=== PATIENT | female | born 1980 | race Native Hawaiian/Other Pacific Islander ===

== ENCOUNTER 2017-01-13 12:04 | Emergency (ER) | payer OTHER ==
[~2017-01-13] VITALS: Ht 152.4 cm; Wt 47.6 kg
[2017-01-13 12:23] VITALS: BP 150/92; TEMP 97.9
== END 2017-01-13 12:53 | disposition home or self-care (01) ==
LOC: ED 12:04
DX: T24.102A Burn of first degree of unspecified site of left lower limb, except ankle and foot, initial encounter (principal); T31.10 Burns involving 10-19% of body surface with 0% to 9% third degree burns; X10.2XXA Contact with fats and cooking oils, initial encounter
CPT/HCPCS: 96372; 99282; J1885

== ENCOUNTER 2017-04-29 16:10 | Emergency (ER) | payer OTHER ==
[~2017-04-29] VITALS: Ht 154.9 cm; Wt 45.4 kg
[2017-04-29 16:15] VITALS: TEMP 98.2
[2017-04-29 16:56] VITALS: BP 128/80
== END 2017-04-29 16:56 | disposition home or self-care (01) ==
LOC: ED 16:10
DX: M54.5 Low back pain (principal); M54.32 Sciatica, left side
CPT/HCPCS: 99282

== ENCOUNTER 2017-05-28 12:53 | Emergency (ER) | payer OTHER ==
[~2017-05-28] VITALS: Ht 152.4 cm; Wt 47.6 kg
[2017-05-28 12:54] VITALS: BP 124/81; TEMP 98.3
== END 2017-05-28 13:23 | disposition home or self-care (01) ==
LOC: ED 12:53
DX: R60.9 Edema, unspecified (principal); R68.84 Jaw pain
CPT/HCPCS: 99281

== ENCOUNTER 2017-06-09 15:40 | Outpatient (CLI) | payer OTHER | END 2017-06-09 15:46 | disposition short-term general hospital (02) | LOC: AMB 15:40 | DX: R07.89 Other chest pain (principal); T78.49XA Other allergy, initial encounter | CPT/HCPCS: A0425; A0427 ==

== ENCOUNTER 2017-06-09 15:45 | Emergency (ER) | payer OTHER ==
[~2017-06-09] VITALS: Ht 152.4 cm; Wt 44.5 kg
[2017-06-09 16:36] LABS: PLATELET COUNT 192 K/uL (152-353)
[2017-06-09 16:47] LABS: POTASSIUM 4.8 mmol/L (3.6-5.2); SODIUM 134 mmol/L (136-145)
[2017-06-09 18:15] VITALS: TEMP 98.2
[2017-06-09 19:23] VITALS: BP 118/62
== END 2017-06-09 19:23 | disposition home or self-care (01) ==
LOC: ED 15:45
DX: R55 Syncope and collapse (principal)
CPT/HCPCS: 80053; 80307; 82550; 84484; 85027; 99283; G0479

== ENCOUNTER 2018-08-01 13:35 | Outpatient (CLI) | payer OTHER | END 2018-08-01 19:19 | disposition home or self-care (01) | LOC: RAD 13:35 | DX: M54.17 Radiculopathy, lumbosacral region (principal) ==

== ENCOUNTER 2018-08-05 12:42 | Emergency (ER) | payer OTHER ==
[~2018-08-05] VITALS: Ht 154.9 cm; Wt 68.0 kg
[2018-08-05 13:47] LABS: PLATELET COUNT 195 K/uL (152-353)
[2018-08-05 15:26] VITALS: BP 106/73; TEMP 98.6
== END 2018-08-05 16:10 | disposition home or self-care (01) ==
LOC: ED 12:42
PROVIDERS: Family Medicine
DX: M54.5 Low back pain (principal); M79.605 Pain in left leg; M79.604 Pain in right leg
CPT/HCPCS: 36415; 80053; 81000; 84550; 85027; 96372; 99283; J1885

== ENCOUNTER 2018-10-12 14:56 | Emergency (ER) | payer OTHER ==
[~2018-10-12] VITALS: Ht 154.9 cm; Wt 68.0 kg
[2018-10-12 15:50] VITALS: BP 117/83
== END 2018-10-12 15:58 | disposition home or self-care (01) ==
LOC: ED 14:56
DX: M54.31 Sciatica, right side (principal); Y93.41 Activity, dancing; Y92.89 Other specified places as the place of occurrence of the external cause
CPT/HCPCS: 96372; 99282; J1020

== ENCOUNTER 2018-10-14 09:13 | Outpatient (CLI) | payer OTHER | END 2018-10-14 19:05 | disposition home or self-care (01) | LOC: RESP 09:13 | DX: G56.01 Carpal tunnel syndrome, right upper limb (principal); G56.23 Lesion of ulnar nerve, bilateral upper limbs | CPT/HCPCS: 95885; 95911 ==

== ENCOUNTER 2018-11-23 14:33 | Emergency (ER) | payer OTHER ==
[~2018-11-23] VITALS: Ht 162.6 cm; Wt 54.4 kg
[2018-11-23 14:54] VITALS: BP 110/77; TEMP 98.8
[2018-11-23] MEDS ORDERED: DICL75TA4 PO (15:16)
[2018-11-23] MEDS ORDERED: GABA300C2 PO (15:16)
[2018-11-23] MEDS ORDERED: SIMV20TA2 PO (15:17)
== END 2018-11-23 18:27 | disposition home or self-care (01) ==
LOC: ED 14:33
DX: J01.80 Other acute sinusitis (principal)
CPT/HCPCS: 87502; 87651; 99283

== ENCOUNTER 2019-01-06 18:12 | Emergency (ER) | payer OTHER ==
[~2019-01-06] VITALS: Ht 162.6 cm; Wt 49.9 kg
[~2019-01-06 18:12] MED LIST: DICL75TA4 PO; GABA300C2 PO; SIMV20TA2 PO
[2019-01-06 18:30] VITALS: BP 119/75; TEMP 97.7
== END 2019-01-06 19:05 | disposition home or self-care (01) ==
LOC: ED 18:12
DX: M54.16 Radiculopathy, lumbar region (principal)
CPT/HCPCS: 99282